=== PATIENT | female | born 1995 | race Caucasian/White ===

== ENCOUNTER 2018-06-28 14:58 | Emergency (ER) | payer OTHER ==
[~2018-06-28] VITALS: Ht 172.7 cm; Wt 137.9 kg
[2018-06-28 15:06] VITALS: BP 151/67; Ht 172.7 cm; Wt 137.9 kg
== END 2018-06-28 15:56 | disposition home or self-care (01) ==
LOC: ED 14:58
DX: O26.893 Other specified pregnancy related conditions, third trimester (principal); K13.79 Other lesions of oral mucosa; J45.909 Unspecified asthma, uncomplicated; I10 Essential (primary) hypertension; Z88.8 Allergy status to other drugs, medicaments and biological substances; Z3A.23 23 weeks gestation of pregnancy